=== PATIENT | male | born 1950 | race Caucasian/White ===

== ENCOUNTER 2019-12-16 15:18 | Inpatient (IN) | payer MEDICARE, BC ==
--- NOTE | 2019-12-16 15:50 | EDM.PDOC ---
ED HPI GENERAL MEDICAL PROBLEM - General Stated Complaint: FALL Time Seen by Provider: 12/16/19 15:44 Source of Information: Reports: Family History Limitations: Reports: Other (dementia) - History of Present Illness INITIAL COMMENTS - FREE TEXT/NARRATIVE: p;t comes from home with his , his is concerned for possible left lower extremity injury, pt has Hx of BKA in 2013 , has progressive dementia and lately has been experiencing near syncopal episodes when standing, today as she was assisting him in bathroom , as he stood up he fell and seems to be c/o pain at right stump , there are no other reported injuries, no LOC , pt here has stable vitals and appear comfortable. also stated concerns about her inability to care for pt at home as his condition has been progressively worsening. Lower Back Pain Score (Numeric/FACES): 3 - Related Data Allergies Allergy/AdvReac Type Severity Reaction Status Date / Time Sulfa (Sulfonamide Allergy Rash Verified 11/29/14 11:27 Antibiotics) Home Meds: Home Meds Acetaminophen 2 tab PO TID 11/24/14 [History] Carbidopa/Levodopa [Carbidopa-Levo ER 50-200] 3 tab PO TID 11/24/14 [History] Carbidopa/Levodopa [Carbidopa-Levodopa 25-100] 2.5 tab PO QID 11/24/14 [History] Cholecalciferol (Vitamin D3) [Vitamin D3] 1,000 unit PO DAILY 11/24/14 [History] Ciprofloxacin HCl [Cipro] 500 mg PO BID 11/24/14 [History] ClonazePAM [KlonoPIN] 0.5 mg PO DAILY 11/24/14 [History] Divalproex Sodium [Depakote] 250 mg PO TID 11/24/14 [History] Donepezil HCl [Aricept] 2 tab PO DAILY 11/24/14 [History] Furosemide [Lasix] 40 mg PO DAILY 11/24/14 [History] Gabapentin [Neurontin] 1.5 tab PO TID 11/24/14 [History] Meloxicam [Mobic] 7.5 mg PO DAILY 11/24/14 [History] Montelukast [Singulair] 10 mg PO BEDTIME 11/24/14 [History] Pramipexole [Mirapex] 0.5 tab PO TID 11/24/14 [History] Tamsulosin [Flomax] 0.4 mg PO DAILY 11/24/14 [History] Venlafaxine HCl [Venlafaxine ER] 2 tab PO DAILY 11/24/14 [History] metroNIDAZOLE 250 mg PO Q8H 11/24/14 [History] ED ROS GENERAL - Review of Systems Review Of Systems: Unable To Obtain Reason Not Obtained: dementia Constitutional: Denies: Fever Respiratory: Reports: No Symptoms ED EXAM, GENERAL - Physical Exam Exam: See Below Exam Limited By: Other (dementia) General Appearance: Alert, No Apparent Distress Eye Exam: Bilateral Eye: Normal Inspection Ears: Normal External Exam, Normal Canal Ear Exam: Bilateral Ear: TM normal Nose: Normal Inspection Throat/Mouth: Normal Inspection, Normal Oropharynx Head: Atraumatic, Normocephalic Neck: Normal Inspection, Supple, Non-Tender, Full Range of Motion Respiratory/Chest: No Respiratory Distress, Lungs Clear, Normal Breath Sounds Cardiovascular: Normal Peripheral Pulses, Regular Rate, Rhythm, No Murmur GI/Abdominal: Normal Bowel Sounds, Soft, Non-Tender Back Exam: Normal Inspection, Full Range of Motion Extremities: Other (bruising noted at posterior side of the right stump , no deformities, ROM at right knee is full. ) Neurological: Alert, CN II-XII Intact, Normal Reflexes, No Motor/Sensory Deficits Skin Exam: Warm Course - Vital Signs Text/Narrative:: labs and Xray results were explained to pt . pt has progressive debility / deconditioning, frequent falls, weakness and now knee pain. will admit acute / plan for placement , PT/OT. Discussed with Noelle Lewis. Last Recorded V/S: Last Vital Signs Temp 36.5 C 12/16/19 15:52 Pulse 63 12/16/19 15:52 Resp 16 12/16/19 15:52 BP 137/85 12/16/19 15:52 Pulse Ox 98 12/16/19 15:52 - Orders/Labs/Meds Orders: Active Orders 24 hr Category Date Time Status EKG Documentation Completion [RC] ASDIRECTED Care 12/16/19 15:55 Active Knee 3V Rt [CR] Stat Exams 12/16/19 16:18 Taken UA W/MICROSCOPIC [URIN] Stat Lab 12/16/19 15:54 Ordered EKG 12 Lead [EK] Routine Ther 12/16/19 15:54 Ordered Labs: Laboratory Tests 12/16/19 12/16/19 12/16/19 Range/Units 16:05 16:05 16:05 WBC 5.6 (4.5-12.0) X10-3/uL RBC 4.04 L (4.30-5.75) x10(6)uL Hgb 12.9 L (13.5-17.8) g/dL Hct 39.6 (30.0-51.3) % MCV 98.0 H (80-96) fL MCH 31.9 (27.7-33.6) pg MCHC 32.5 (32.2-35.4) g/dL RDW 12.5 (11.5-15.5) % Plt Count 142 (125-369) X10(3)uL MPV 7.4 (7.4-10.4) fL Neut % (Auto) 72.9 (46-82) % Lymph % (Auto) 18.1 (13-37) % [place] % (Auto) 7.3 (4-12) % Eos % (Auto) 1 (1.0-5.0) % Baso % (Auto) 1 (0-2) % Neut # (Auto) 4.1 (1.6-8.3) # Lymph # (Auto) 1.0 (0.6-5.0) # [place] # (Auto) 0.4 (0.0-1.3) # Eos # (Auto) 0.0 (0.0-0.8) # Baso # (Auto) 0.1 (0.0-0.2) # Sodium 142 (135-145) mmol/L Potassium 4.4 (3.5-5.3) mmol/L Chloride 104 (100-110) mmol/L Carbon Dioxide 29 (21-32) mmol/L BUN 14 (7-18) mg/dL Creatinine 1.2 (0.70-1.30) mg/dL Est Cr Clr Drug Dosing 57.79 mL/min Estimated GFR (MDRD) > 60 (>60) BUN/Creatinine Ratio 11.7 (9-20) Glucose 86 (80-116) mg/dL Calcium 8.7 (8.6-10.2) mg/dL Total Bilirubin 0.4 (0.1-1.3) mg/dL AST 11 (5-25) IU/L ALT 7 L (12-36) U/L Alkaline Phosphatase 46 L (56-112) IU/L Troponin I 5.8 (4.0-60.3) pg/mL Total Protein 6.5 (6.0-8.0) g/dL Albumin 3.4 (3.2-4.6) g/dL Globulin 3.1 g/dL Albumin/Globulin Ratio 1.1 Departure - Departure Time of Disposition: 16:58 Disposition: Admitted As Inpatient 68 Clinical Impression: General weakness - Discharge Information Referrals: Devin Stallworth MD [Primary Care Provider] - Sepsis Event Note (ED) - Focused Exam Vital Signs: Vital Signs Temp Pulse Resp BP Pulse Ox 12/16/19 15:52 36.5 C 63 16 137/85 98 - My Orders Last 24 Hours: My Active Orders 12/16/19 15:54 UA W/MICROSCOPIC [URIN] Stat EKG 12 Lead [EK] Routine 12/16/19 15:55 EKG Documentation Completion [RC] ASDIRECTED 12/16/19 16:18 Knee 3V Rt [CR] Stat - Assessment/Plan Last 24 Hours: My Active Orders 12/16/19 15:54 UA W/MICROSCOPIC [URIN] Stat EKG 12 Lead [EK] Routine 12/16/19 15:55 EKG Documentation Completion [RC] ASDIRECTED 12/16/19 16:18 Knee 3V Rt [CR] Stat
[2019-12-16] MEDS ORDERED: Acetaminophen 325 MG Tab PO PRN (16:59)
[2019-12-16] MEDS ORDERED: Acetaminophen 500 MG Tab PO PRN (18:07)
--- NOTE | 2019-12-16 18:53 | CR ---
INDICATION: Right knee pain - right BK amputation due to Staph infection in foot - fell today, prosthetic twisted. Entire posterior knee bruised and painful. Question fracture. RIGHT KNEE: Three views of the right knee were obtained revealing evidence of BK amputation. Hypertrophic degenerative changes are noted at the intercondylar notch and spines. Somewhat demineralized appearance suggests osteomalacia or osteoporosis - correlate clinically. Mild hypertrophic changes are also noted at the patellofemoral joint. The femorotibial and patellofemoral joint spaces appear to be fairly well maintained. A definite fracture, dislocation or other acute bone or joint abnormality was not identified. IMPRESSION: No acute fracture or dislocation. MTDD
[2019-12-16] MEDS ORDERED: Carbidopa/Levodopa 25-100 MG Tab PO SCH (21:00)
[2019-12-16] MEDS: Divalproex Sodium Delayed-Release 250 MG Tab.CR PO SCH (21:04)
[2019-12-16] MEDS: Gabapentin 600 MG Tab PO SCH (21:05)
[2019-12-16] MEDS: ClonazePAM 0.5 MG Tab PO SCH (21:05)
[2019-12-16] MEDS: Carbidopa/Levodopa 50-200 MG Tab.ER PO SCH (21:05)
[2019-12-16] MEDS: Tamsulosin 0.4 MG Cap.ER PO SCH (21:05)
[2019-12-16] MEDS: Memantine 10 MG Tab PO SCH (21:05)
[2019-12-17] MEDS ORDERED: Carbidopa/Levodopa 25-100 MG Tab PO SCH ×2 (06:30→15:00)
[2019-12-17] MEDS: Memantine 10 MG Tab PO SCH ×2 (08:34→20:04)
[2019-12-17] MEDS: Venlafaxine 150 MG Cap.ER PO SCH (08:34)
[2019-12-17] MEDS: Donepezil 10 MG Tab PO SCH (08:34)
[2019-12-17] MEDS: Gabapentin 600 MG Tab PO SCH ×3 (08:41→20:11)
--- NOTE | 2019-12-17 09:07 | PCM.HP.2 ---
H&P History of Present Illness - General Date of Service: 12/17/19 Admit Problem/Dx: Admission Diagnosis/Problem Admission Diagnosis/Problem Weakness Source of Information: Old Records History Limitations: Reports: Other (Difficulty speaking as a Parkinson's.) - History of Present Illness Initial Comments - Free Text/Narative: This a 69-year-old male patient with Parkinson's disease, dementia and right BKA. His is been taking care of him at home and has become more difficult. He fell yesterday and get him up so they brought to the ER. He denies fevers, chills, chest pain, shortness of breath. Does have tremors. They were worried that he hurt his right stump is he fell on it. Lower Back Pain Score (Numeric/FACES): 3 - Related Data Allergies/Adverse Reactions: Allergies Allergy/AdvReac Type Severity Reaction Status Date / Time Sulfa (Sulfonamide Allergy Rash Verified 11/29/14 11:27 Antibiotics) Home Medications: Home Meds Acetaminophen 1,000 mg PO BID PRN 11/24/14 [History] Carbidopa/Levodopa [Carbidopa-Levo ER 50-200] 1 tab PO BEDTIME 11/24/14 [History] Carbidopa/Levodopa [Carbidopa-Levodopa 25-100] 1 tab PO 5XDAY 11/24/14 [History] ClonazePAM [KlonoPIN] 0.5 mg PO BEDTIME 11/24/14 [History] Donepezil HCl [Aricept] 20 mg PO DAILY 11/24/14 [History] Gabapentin [Neurontin] 600 mg PO TID 11/24/14 [History] Tamsulosin [Flomax] 0.4 mg PO BEDTIME 11/24/14 [History] Venlafaxine HCl [Venlafaxine ER] 300 mg PO DAILY 11/24/14 [History] Cholecalciferol (Vitamin D3) [Vitamin D3] 1,000 unit PO DAILY 12/16/19 [History] Memantine [Namenda] 10 mg PO BID 12/16/19 [History] Carbidopa/Levodopa [Carbidopa-Levo ER 50-200] 1 tab PO BEDTIME PRN 12/17/19 [ History] Divalproex Sodium [Depakote ER] 500 mg PO TID@05,12,18 12/17/19 [History] Past Medical History HEENT History: Reports: Impaired Vision Cardiovascular History: Reports: Syncope Other Cardiovascular History: Orthostatis Hypotension Psychiatric History: Reports: Dementia Other Psychiatric History: Patient has Parkinsons. - Past Surgical History Musculoskeletal Surgical History: Reports: Other (See Below) Other Musculoskeletal Surgeries/Procedures:: Below the knee amputation 2014 - us ign a prosthetic. Social & Family History - Family History Family Medical History: Noncontributory - Tobacco Use Smoking Status *Q: Never Smoker Second Hand Smoke Exposure: No - Caffeine Use Caffeine Use: Reports: Soda Other Caffeine Use: sometimes - Recreational Drug Use Recreational Drug Use: No H&P Review of Systems - Review of Systems: Review Of Systems: See Below General: Reports: Weakness HEENT: Reports: No Symptoms Pulmonary: Reports: No Symptoms Cardiovascular: Reports: No Symptoms Gastrointestinal: Reports: No Symptoms Genitourinary: Reports: No Symptoms Musculoskeletal: Reports: Other (Right BK) Skin: Reports: No Symptoms Psychiatric: Reports: Other (Dementia) Neurological: Reports: No Symptoms Hematologic/Lymphatic: Reports: No Symptoms Immunologic: Reports: No Symptoms Exam - Exam Exam: See Below - Vital Signs Vital Signs: Last Vital Signs Temp 97.7 F 12/17/19 05:00 Pulse 54 L 12/17/19 05:00 Resp 16 12/17/19 05:00 BP 134/81 12/17/19 05:00 Pulse Ox 95 12/17/19 05:00 Weight: 216 lb 9.6 oz - Exam General: Alert, Cooperative, Other (Overweight) HEENT: Hearing Intact, Posterior Pharynx Clear, Pupils Equal, TMs Clear, Other (Speaks in one-word sentences.) Neck: Supple, Trachea Midline Lungs: Clear to Auscultation, Normal Respiratory Effort Cardiovascular: Regular Rate, Regular Rhythm. No: Systolic Murmur GI/Abdominal Exam: Normal Bowel Sounds, Soft, Non-Tender, No Distention Extremities: Normal Inspection, Normal Range of Motion, No Pedal Edema, Other (Right BKA. Some old bruises anterior lower thigh. His stump looks good without any pain on palpation.) Skin: Warm Neuro Extensive - Mental Status: Alert, Normal Mood/Affect Neuro Extensive - Motor, Sensory, Reflexes: Other (Tremors legs and hands) Psychiatric: Alert, Normal Mood - Patient Data Lab Results Last 24 hrs: Laboratory Results - last 24 hr 12/16/19 12/16/19 12/16/19 Range/Units 15:54 16:05 16:05 WBC 5.6 (4.5-12.0) X10-3/uL RBC 4.04 L (4.30-5.75) x10(6)uL Hgb 12.9 L (13.5-17.8) g/dL Hct 39.6 (30.0-51.3) % MCV 98.0 H (80-96) fL MCH 31.9 (27.7-33.6) pg MCHC 32.5 (32.2-35.4) g/dL RDW 12.5 (11.5-15.5) % Plt Count 142 (125-369) X10(3)uL MPV 7.4 (7.4-10.4) fL Neut % (Auto) 72.9 (46-82) % Lymph % (Auto) 18.1 (13-37) % [place] % (Auto) 7.3 (4-12) % Eos % (Auto) 1 (1.0-5.0) % Baso % (Auto) 1 (0-2) % Neut # (Auto) 4.1 (1.6-8.3) # Lymph # (Auto) 1.0 (0.6-5.0) # [place] # (Auto) 0.4 (0.0-1.3) # Eos # (Auto) 0.0 (0.0-0.8) # Baso # (Auto) 0.1 (0.0-0.2) # Sodium 142 (135-145) mmol/L Potassium 4.4 (3.5-5.3) mmol/L Chloride 104 (100-110) mmol/L Carbon Dioxide 29 (21-32) mmol/L BUN 14 (7-18) mg/dL Creatinine 1.2 (0.70-1.30) mg/dL Est Cr Clr Drug Dosing 57.79 mL/min Estimated GFR (MDRD) > 60 (>60) BUN/Creatinine Ratio 11.7 (9-20) Glucose 86 (80-116) mg/dL Calcium 8.7 (8.6-10.2) mg/dL Total Bilirubin 0.4 (0.1-1.3) mg/dL AST 11 (5-25) IU/L ALT 7 L (12-36) U/L Alkaline Phosphatase 46 L (56-112) IU/L Troponin I (4.0-60.3) pg/mL Total Protein 6.5 (6.0-8.0) g/dL Albumin 3.4 (3.2-4.6) g/dL Globulin 3.1 g/dL Albumin/Globulin Ratio 1.1 Urine Color Other (YELLOW) Urine Appearance Slightly cloudy (CLEAR) Urine pH 5.0 (5.0-6.5) Ur Specific [place] 1.025 (1.010-1.025) Urine Protein Trace (NEGATIVE) mg/dL Urine Glucose (UA) Normal (NORMAL) mg/dL Urine Ketones 15 H (NEGATIVE) mg/dL Urine Occult Blood Negative (NEGATIVE) Urine Nitrite Negative (NEGATIVE) Urine Bilirubin Negative (NEGATIVE) Urine Urobilinogen Normal (NEGATIVE) mg/dL Ur Leukocyte Esterase Negative (NEGATIVE) Urine RBC 0-5 (0-5) Urine WBC 0-5 (0-5) Ur Squamous Epith Cells Occasional (NS,R,O) Urine Bacteria Few H (NS) Urine Mucus Moderate H (NS) 12/16/19 Range/Units 16:05 WBC (4.5-12.0) X10-3/uL RBC (4.30-5.75) x10(6)uL Hgb (13.5-17.8) g/dL Hct (30.0-51.3) % MCV (80-96) fL MCH (27.7-33.6) pg MCHC (32.2-35.4) g/dL RDW (11.5-15.5) % Plt Count (125-369) X10(3)uL MPV (7.4-10.4) fL Neut % (Auto) (46-82) % Lymph % (Auto) (13-37) % [place] % (Auto) (4-12) % Eos % (Auto) (1.0-5.0) % Baso % (Auto) (0-2) % Neut # (Auto) (1.6-8.3) # Lymph # (Auto) (0.6-5.0) # [place] # (Auto) (0.0-1.3) # Eos # (Auto) (0.0-0.8) # Baso # (Auto) (0.0-0.2) # Sodium (135-145) mmol/L Potassium (3.5-5.3) mmol/L Chloride (100-110) mmol/L Carbon Dioxide (21-32) mmol/L BUN (7-18) mg/dL Creatinine (0.70-1.30) mg/dL Est Cr Clr Drug Dosing mL/min Estimated GFR (MDRD) (>60) BUN/Creatinine Ratio (9-20) Glucose (80-116) mg/dL Calcium (8.6-10.2) mg/dL Total Bilirubin (0.1-1.3) mg/dL AST (5-25) IU/L ALT (12-36) U/L Alkaline Phosphatase (56-112) IU/L Troponin I 5.8 (4.0-60.3) pg/mL Total Protein (6.0-8.0) g/dL Albumin (3.2-4.6) g/dL Globulin g/dL Albumin/Globulin Ratio Urine Color (YELLOW) Urine Appearance (CLEAR) Urine pH (5.0-6.5) Ur Specific [place] (1.010-1.025) Urine Protein (NEGATIVE) mg/dL Urine Glucose (UA) (NORMAL) mg/dL Urine Ketones (NEGATIVE) mg/dL Urine Occult Blood (NEGATIVE) Urine Nitrite (NEGATIVE) Urine Bilirubin (NEGATIVE) Urine Urobilinogen (NEGATIVE) mg/dL Ur Leukocyte Esterase (NEGATIVE) Urine RBC (0-5) Urine WBC (0-5) Ur Squamous Epith Cells (NS,R,O) Urine Bacteria (NS) Urine Mucus (NS) Result Diagrams: 12/16/19 16:05 12/16/19 16:05 Sepsis Event Note - Evaluation Sepsis Screening Result: No Definite Risk - Focused Exam Vital Signs: Vital Signs Temp Pulse Resp BP Pulse Ox 12/17/19 05:00 97.7 F 54 L 16 134/81 95 12/17/19 00:00 97.9 F 54 L 16 136/85 94 L - Problem List (1) Alzheimer's dementia SNOMED Code(s): 38052629 ICD Code: G30.9 - ALZHEIMER'S DISEASE, UNSPECIFIED; F02.80 - DEMENTIA IN OTH DISEASES CLASSD ELSWHR W/O BEHAVRL DISTURB Status: Acute Current Visit: Yes (2) Palliative care status SNOMED Code(s): 875923732 ICD Code: Z51.5 - ENCOUNTER FOR PALLIATIVE CARE Status: Acute Current Visit: Yes (3) Right BKA infection SNOMED Code(s): 258893497, 367010410 ICD Code: T87.43 - INFECTION OF AMPUTATION STUMP, RIGHT LOWER EXTREMITY Status: Acute Current Visit: Yes (4) General weakness SNOMED Code(s): 32430022 ICD Code: R53.1 - WEAKNESS Status: Acute Current Visit: Yes (5) Parkinsons disease SNOMED Code(s): 39398917 ICD Code: G20 - PARKINSON'S DISEASE Status: Acute Current Visit: Yes Problem List Initiated/Reviewed/Updated: Yes Orders Last 24hrs: Active Orders 24 hr Category Date Time Status Patient Status [ADT] Routine ADT 12/16/19 16:59 Active Pulse Oximetry [RC] PRN Care 12/16/19 16:59 Active Up With Assistance [RC] ASDIRECTED Care 12/16/19 16:59 Active Vital Signs [RC] 08,12,16,20,00,04 Care 12/16/19 16:59 Active Regular Diet [DIET] Diet 12/16/19 Dinner Active Acetaminophen [TylenoL] Med 12/16/19 16:59 Active 650 mg PO Q4H PRN Acetaminophen [Tylenol Extra Strength] Med 12/16/19 18:07 Active 1,000 mg PO BID PRN Carbidopa/Levodopa [Sinemet 25-100 mg] Med 12/17/19 06:30 Active 2.5 tab PO BID@0630,1200 Carbidopa/Levodopa [Sinemet 25-100 mg] Med 12/17/19 15:00 Active 2.5 tab PO BID@1500,1800 Carbidopa/Levodopa [Sinemet Cr 50-200 mg] Med 12/16/19 21:00 Active 1 tab PO BEDTIME ClonazePAM [KlonoPIN] Med 12/16/19 21:00 Active 0.5 mg PO BEDTIME Divalproex Sodium Med 12/16/19 21:00 Active 500 mg PO TID Donepezil [Aricept] Med 12/17/19 09:00 Active 20 mg PO DAILY Gabapentin [Neurontin] Med 12/16/19 21:00 Active 600 mg PO TID Magnesium Hydroxide [Milk of Magnesia] Med 12/16/19 16:59 Active 30 ml PO BID PRN Memantine [Namenda] Med 12/16/19 21:00 Active 10 mg PO BID Tamsulosin [Flomax] Med 12/16/19 21:00 Active 0.4 mg PO BEDTIME Venlafaxine [Effexor XR] Med 12/17/19 09:00 Active 300 mg PO DAILY Resuscitation Status Routine Resus Stat 12/16/19 18:34 Ordered EKG 12 Lead [EK] Routine Ther 12/16/19 15:54 Ordered Medication Orders Acetaminophen (Tylenol) 650 mg PO Q4H PRN PRN Reason: analgesia/fever Acetaminophen (Tylenol Extra Strength) 1,000 mg PO BID PRN PRN Reason: Pain Carbidopa/Levodopa (Sinemet Cr 50-200 Mg) 1 tab PO BEDTIME [facility] Last Admin: 12/16/19 21:05 Dose: 1 tab Documented by: ELVI Carbidopa/Levodopa (Sinemet 25-100 Mg) 2.5 tab PO BID@0630,1200 [facility] Last Admin: 12/17/19 05:37 Dose: 2.5 tab Documented by: ELVI Carbidopa/Levodopa (Sinemet 25-100 Mg) 2.5 tab PO BID@1500,1800 [facility] Clonazepam (Klonopin) 0.5 mg PO BEDTIME [facility] Last Admin: 12/16/19 21:05 Dose: 0.5 mg Documented by: ELVI Divalproex Sodium (Divalproex Sodium) 500 mg PO TID [facility] Last Admin: 12/16/19 21:04 Dose: 500 mg Documented by: ELVI Donepezil HCl (Aricept) 20 mg PO DAILY [facility] Last Admin: 12/17/19 08:34 Dose: 20 mg Documented by: KRISTIAN Gabapentin (Neurontin) 600 mg PO TID [facility] Last Admin: 12/17/19 08:41 Dose: 600 mg Documented by: Admin: 12/16/19 21:05 Dose: 600 mg Documented by: ELVI Magnesium Hydroxide (Milk Of Magnesia) 30 ml PO BID PRN PRN Reason: Constipation Memantine (Namenda) 10 mg PO BID [facility] Last Admin: 12/17/19 08:34 Dose: 10 mg Documented by: Admin: 12/16/19 21:05 Dose: 10 mg Documented by: ELVI Tamsulosin HCl (Flomax) 0.4 mg PO BEDTIME [facility] Last Admin: 12/16/19 21:05 Dose: 0.4 mg Documented by: ELVI Venlafaxine HCl (Effexor Xr) 300 mg PO DAILY [facility] Last Admin: 12/17/19 08:34 Dose: 300 mg Documented by: KRISTIAN Assessment/Plan Comment:: 1. Admit to inpatient 2. Palliative care status 3. DNR/DNI 4. Lovenox for clot prophylaxis 5. Continue home medications 6. information services manager to see 7. PT/OT - Mortality Measure Prognosis:: Poor
[2019-12-17] MEDS ORDERED: Carbidopa/Levodopa 50-200 MG Tab.ER PO PRN (09:08)
[2019-12-17] MEDS: Enoxaparin 40 MG/0.4 ML Syringe SUBCUT SCH (10:52)
[2019-12-17] MEDS: Divalproex Sodium 500 MG Tab.ER PO SCH ×2 (10:52→16:53)
[2019-12-17] MEDS: Carbidopa/Levodopa 25-100 MG Tab PO SCH ×3 (11:04→16:59)
[2019-12-17] MEDS: Divalproex Sodium Delayed-Release 250 MG Tab.CR PO SCH (11:06)
[2019-12-17] MEDS: Carbidopa/Levodopa 50-200 MG Tab.ER PO SCH (20:01)
[2019-12-17] MEDS: Tamsulosin 0.4 MG Cap.ER PO SCH (20:03)
[2019-12-17] MEDS: ClonazePAM 0.5 MG Tab PO SCH (20:11)
[2019-12-17] MEDS: Divalproex Sodium 250 MG Tab.ER PO SCH (21:46)
[2019-12-18] MEDS: Carbidopa/Levodopa 25-100 MG Tab PO SCH ×5 (04:41→18:13)
[2019-12-18] MEDS: Divalproex Sodium 250 MG Tab.ER PO SCH ×3 (04:41→18:13)
--- NOTE | 2019-12-18 08:07 | PCM.PN ---
- General Info Date of Service: 12/18/19 Admission Dx/Problem (Free Text): When asked how he is doing he said he smoked is dry mouth. Did not answer any other questions. The nurses state related to get him to the bathroom he has some syncopal episodes. The head nurse talked to the says this happens all the time when he goes the bathroom and she just sits back down and get better. They thought it may be from the Parkinson's medication according to the neurologist and told to use Gatorade with BMs before taking the medication. That has not worked. - Patient Data Vitals - Most Recent: Last Vital Signs Temp 97.6 F 12/18/19 04:50 Pulse 64 12/18/19 04:50 Resp 20 12/18/19 04:50 BP 128/82 12/18/19 04:50 Pulse Ox 95 12/18/19 04:50 Weight - Most Recent: 216 lb 9.6 oz Med Orders - Current: Current Medications Acetaminophen (Tylenol) 650 mg PO Q4H PRN PRN Reason: analgesia/fever Acetaminophen (Tylenol Extra Strength) 1,000 mg PO BID PRN PRN Reason: Pain Carbidopa/Levodopa (Sinemet Cr 50-200 Mg) 1 tab PO BEDTIME [facility] Last Admin: 12/17/19 20:01 Dose: 1 tab Documented by: Carbidopa/Levodopa (Sinemet Cr 50-200 Mg) 1 tab PO BEDTIME PRN PRN Reason: PARKINSONS Carbidopa/Levodopa (Sinemet 25-100 Mg) 1 tab PO TID@0500,0830,1200 [facility] Last Admin: 12/18/19 04:41 Dose: 1 tab Documented by: Carbidopa/Levodopa (Sinemet 25-100 Mg) 1 tab PO BID@1500,1800 [facility] Last Admin: 12/17/19 16:59 Dose: 1 tab Documented by: Clonazepam (Klonopin) 0.5 mg PO BEDTIME [facility] Last Admin: 12/17/19 20:11 Dose: 0.5 mg Documented by: Divalproex Sodium (Depakote Er) 500 mg PO TID@0500,1200,1800 [facility] Last Admin: 12/18/19 04:41 Dose: 500 mg Documented by: Donepezil HCl (Aricept) 20 mg PO DAILY [facility] Last Admin: 12/17/19 08:34 Dose: 20 mg Documented by: Enoxaparin Sodium (Lovenox) 40 mg SUBCUT Q24H [facility] Last Admin: 12/17/19 10:52 Dose: 40 mg Documented by: Gabapentin (Neurontin) 600 mg PO TID [facility] Last Admin: 12/17/19 20:11 Dose: 600 mg Documented by: Magnesium Hydroxide (Milk Of Magnesia) 30 ml PO BID PRN PRN Reason: Constipation Memantine (Namenda) 10 mg PO BID [facility] Last Admin: 12/17/19 20:04 Dose: 10 mg Documented by: Tamsulosin HCl (Flomax) 0.4 mg PO BEDTIME [facility] Last Admin: 12/17/19 20:03 Dose: 0.4 mg Documented by: Venlafaxine HCl (Effexor Xr) 300 mg PO DAILY [facility] Last Admin: 12/17/19 08:34 Dose: 300 mg Documented by: Discontinued Medications Carbidopa/Levodopa (Sinemet 25-100 Mg) 2.5 tab PO QID [facility] Carbidopa/Levodopa (Sinemet 25-100 Mg) 2.5 tab PO BID@0630,1200 [facility] Last Admin: 12/17/19 05:37 Dose: 2.5 tab Documented by: Carbidopa/Levodopa (Sinemet 25-100 Mg) 2.5 tab PO BID@1500,1800 [facility] Divalproex Sodium (Divalproex Sodium) 500 mg PO TID COUNT [facility] Last Admin: 12/17/19 11:06 Dose: Not Given Documented by: Divalproex Sodium (Depakote Er) 500 mg PO TID@0500,1200,1800 [facility] Last Admin: 12/17/19 16:53 Dose: 500 mg Documented by: - Exam General: Alert, Cooperative Lungs: Clear to Auscultation, Normal Respiratory Effort Cardiovascular: Regular Rate, Regular Rhythm, No Murmurs Sepsis Event Note - Evaluation Sepsis Screening Result: No Definite Risk - Focused Exam Vital Signs: Vital Signs Temp Pulse Resp BP Pulse Ox 12/18/19 04:50 97.6 F 64 20 128/82 95 12/18/19 00:00 18 12/17/19 22:00 98.1 F 66 20 112/71 92 L - Problem List & Annotations (1) Alzheimer's dementia SNOMED Code(s): 20996523 Code(s): G30.9 - ALZHEIMER'S DISEASE, UNSPECIFIED; F02.80 - DEMENTIA IN OTH DISEASES CLASSD ELSWHR W/O BEHAVRL DISTURB Status: Acute Current Visit: Yes (2) Palliative care status SNOMED Code(s): 374842952 Code(s): Z51.5 - ENCOUNTER FOR PALLIATIVE CARE Status: Acute Current Visit: Yes (3) Right BKA infection SNOMED Code(s): 179104611, 026889471 Code(s): T87.43 - INFECTION OF AMPUTATION STUMP, RIGHT LOWER EXTREMITY Status: Acute Current Visit: Yes (4) General weakness SNOMED Code(s): 52951677 Code(s): R53.1 - WEAKNESS Status: Acute Current Visit: Yes (5) Parkinsons disease SNOMED Code(s): 24275245 Code(s): G20 - PARKINSON'S DISEASE Status: Acute Current Visit: Yes (6) Near syncope SNOMED Code(s): 409542977 Code(s): R55 - SYNCOPE AND COLLAPSE Status: Acute Current Visit: Yes - Problem List Review Problem List Initiated/Reviewed/Updated: Yes - My Orders Last 24 Hours: My Active Orders 12/17/19 09:08 Carbidopa/Levodopa [Sinemet Cr 50-200 mg] 1 tab PO BEDTIME PRN 12/17/19 09:10 Consult to Occupational Therapy [OT Evaluation and Treatment] [CONS] Routine Consult to Physical Therapy [PT Evaluation and Treatment] [CONS] Routine 12/17/19 09:11 Consult to Case Management/Transition Coach [CONS] Routine 12/17/19 09:15 Enoxaparin [Lovenox] 40 mg SUBCUT Q24H 12/17/19 12:00 Carbidopa/Levodopa [Sinemet 25-100 mg] 1 tab PO TID@0500,0830,1200 12/17/19 15:00 Carbidopa/Levodopa [Sinemet 25-100 mg] 1 tab PO BID@1500,1800 12/17/19 21:00 Divalproex Sodium [Depakote ER] 500 mg PO TID@0500,1200,1800 - Plan Plan:: 1. Check his blood pressure of he has another episode. To hold the Flomax and see if this could be possibly causing the issue. He's not any beta blockers her blood pressure medication.
[2019-12-18] MEDS: Gabapentin 600 MG Tab PO SCH ×3 (08:36→20:09)
[2019-12-18] MEDS: Memantine 10 MG Tab PO SCH ×2 (08:36→20:08)
[2019-12-18] MEDS: Venlafaxine 150 MG Cap.ER PO SCH (08:37)
[2019-12-18] MEDS: Enoxaparin 40 MG/0.4 ML Syringe SUBCUT SCH (08:37)
[2019-12-18] MEDS: Donepezil 10 MG Tab PO SCH (08:37)
[2019-12-18] MEDS: ClonazePAM 0.5 MG Tab PO SCH (20:07)
[2019-12-18] MEDS: Carbidopa/Levodopa 50-200 MG Tab.ER PO SCH (20:09)
[2019-12-19] MEDS: Carbidopa/Levodopa 25-100 MG Tab PO SCH ×5 (05:17→17:51)
[2019-12-19] MEDS: Divalproex Sodium 250 MG Tab.ER PO SCH ×3 (05:18→17:51)
--- NOTE | 2019-12-19 07:59 | PCM.PN ---
- General Info Date of Service: 12/19/19 Admission Dx/Problem (Free Text): Patient without concerns. He doesn't really talk or answer questions - Patient Data Vitals - Most Recent: Last Vital Signs Temp 98 F 12/19/19 00:00 Pulse 62 12/19/19 00:00 Resp 18 12/19/19 00:00 BP 124/75 12/19/19 00:00 Pulse Ox 95 12/19/19 00:00 Weight - Most Recent: 216 lb 9.6 oz Med Orders - Current: Current Medications Acetaminophen (Tylenol) 650 mg PO Q4H PRN PRN Reason: analgesia/fever Acetaminophen (Tylenol Extra Strength) 1,000 mg PO BID PRN PRN Reason: Pain Carbidopa/Levodopa (Sinemet Cr 50-200 Mg) 1 tab PO BEDTIME [facility] Last Admin: 12/18/19 20:09 Dose: 1 tab Documented by: Carbidopa/Levodopa (Sinemet Cr 50-200 Mg) 1 tab PO BEDTIME PRN PRN Reason: PARKINSONS Carbidopa/Levodopa (Sinemet 25-100 Mg) 1 tab PO TID@0500,0830,1200 [facility] Last Admin: 12/19/19 05:17 Dose: 1 tab Documented by: Carbidopa/Levodopa (Sinemet 25-100 Mg) 1 tab PO BID@1500,1800 [facility] Last Admin: 12/18/19 18:13 Dose: 1 tab Documented by: Clonazepam (Klonopin) 0.5 mg PO BEDTIME [facility] Last Admin: 12/18/19 20:07 Dose: 0.5 mg Documented by: Divalproex Sodium (Depakote Er) 500 mg PO TID@0500,1200,1800 [facility] Last Admin: 12/19/19 05:18 Dose: 500 mg Documented by: Donepezil HCl (Aricept) 20 mg PO DAILY [facility] Last Admin: 12/18/19 08:37 Dose: 20 mg Documented by: Enoxaparin Sodium (Lovenox) 40 mg SUBCUT Q24H [facility] Last Admin: 12/18/19 08:37 Dose: 40 mg Documented by: Gabapentin (Neurontin) 600 mg PO TID [facility] Last Admin: 12/18/19 20:09 Dose: 600 mg Documented by: Magnesium Hydroxide (Milk Of Magnesia) 30 ml PO BID PRN PRN Reason: Constipation Memantine (Namenda) 10 mg PO BID [facility] Last Admin: 12/18/19 20:08 Dose: 10 mg Documented by: Tamsulosin HCl (Flomax) 0.4 mg PO BEDTIME [facility] Last Admin: 12/17/19 20:03 Dose: 0.4 mg Documented by: Venlafaxine HCl (Effexor Xr) 300 mg PO DAILY [facility] Last Admin: 12/18/19 08:37 Dose: 300 mg Documented by: Discontinued Medications Carbidopa/Levodopa (Sinemet 25-100 Mg) 2.5 tab PO QID [facility] Carbidopa/Levodopa (Sinemet 25-100 Mg) 2.5 tab PO BID@0630,1200 [facility] Last Admin: 12/17/19 05:37 Dose: 2.5 tab Documented by: Carbidopa/Levodopa (Sinemet 25-100 Mg) 2.5 tab PO BID@1500,1800 [facility] Divalproex Sodium (Divalproex Sodium) 500 mg PO TID [facility] Last Admin: 12/17/19 11:06 Dose: Not Given Documented by: Divalproex Sodium (Depakote Er) 500 mg PO TID@0500,1200,1800 [facility] Last Admin: 12/17/19 16:53 Dose: 500 mg Documented by: - Exam General: Alert, Cooperative Lungs: Clear to Auscultation, Normal Respiratory Effort Cardiovascular: Regular Rate, Regular Rhythm, No Murmurs Extremities: No Pedal Edema, Other (Right BKA) Sepsis Event Note - Evaluation Sepsis Screening Result: No Definite Risk - Focused Exam Vital Signs: Vital Signs Temp Pulse Resp BP Pulse Ox 12/19/19 00:00 98 F 62 18 124/75 95 - Problem List & Annotations (1) Alzheimer's dementia SNOMED Code(s): 61102835 Code(s): G30.9 - ALZHEIMER'S DISEASE, UNSPECIFIED; F02.80 - DEMENTIA IN OTH DISEASES CLASSD ELSWHR W/O BEHAVRL DISTURB Status: Acute Current Visit: Yes (2) Palliative care status SNOMED Code(s): 923193481 Code(s): Z51.5 - ENCOUNTER FOR PALLIATIVE CARE Status: Acute Current Visit: Yes (3) Right BKA infection SNOMED Code(s): 643724756, 269498861 Code(s): T87.43 - INFECTION OF AMPUTATION STUMP, RIGHT LOWER EXTREMITY Status: Acute Current Visit: Yes (4) General weakness SNOMED Code(s): 92726420 Code(s): R53.1 - WEAKNESS Status: Acute Current Visit: Yes (5) Parkinsons disease SNOMED Code(s): 99151331 Code(s): G20 - PARKINSON'S DISEASE Status: Acute Current Visit: Yes (6) Near syncope SNOMED Code(s): 539422870 Code(s): R55 - SYNCOPE AND COLLAPSE Status: Acute Current Visit: Yes - Problem List Review Problem List Initiated/Reviewed/Updated: Yes - Plan Plan:: 1. correction placement when available
[2019-12-19] MEDS: Venlafaxine 150 MG Cap.ER PO SCH (08:47)
[2019-12-19] MEDS: Donepezil 10 MG Tab PO SCH (08:47)
[2019-12-19] MEDS: Enoxaparin 40 MG/0.4 ML Syringe SUBCUT SCH (08:47)
[2019-12-19] MEDS: Gabapentin 600 MG Tab PO SCH ×3 (08:47→20:11)
[2019-12-19] MEDS: Memantine 10 MG Tab PO SCH ×2 (08:47→20:11)
[2019-12-19] MEDS: Carbidopa/Levodopa 50-200 MG Tab.ER PO SCH (20:11)
[2019-12-19] MEDS: ClonazePAM 0.5 MG Tab PO SCH (20:11)
[2019-12-20] MEDS: Carbidopa/Levodopa 25-100 MG Tab PO SCH ×5 (05:19→16:59)
[2019-12-20] MEDS: Divalproex Sodium 250 MG Tab.ER PO SCH (05:20)
--- NOTE | 2019-12-20 08:16 | PCM.PN ---
- General Info Date of Service: 12/20/19 Admission Dx/Problem (Free Text): A shouldn't has no complaints. He does not talk much or answer many questions. - Patient Data Vitals - Most Recent: Last Vital Signs Temp 98 F 12/20/19 01:00 Pulse 63 12/20/19 01:00 Resp 18 12/20/19 01:00 BP 156/80 H 12/20/19 01:00 Pulse Ox 96 12/20/19 01:00 Weight - Most Recent: 216 lb 9.6 oz Med Orders - Current: Current Medications Acetaminophen (Tylenol) 650 mg PO Q4H PRN PRN Reason: analgesia/fever Acetaminophen (Tylenol Extra Strength) 1,000 mg PO BID PRN PRN Reason: Pain Carbidopa/Levodopa (Sinemet Cr 50-200 Mg) 1 tab PO BEDTIME [facility] Last Admin: 12/19/19 20:11 Dose: 1 tab Documented by: Carbidopa/Levodopa (Sinemet Cr 50-200 Mg) 1 tab PO BEDTIME PRN PRN Reason: PARKINSONS Carbidopa/Levodopa (Sinemet 25-100 Mg) 1 tab PO TID@0500,0830,1200 [facility] Last Admin: 12/20/19 05:19 Dose: 1 tab Documented by: Carbidopa/Levodopa (Sinemet 25-100 Mg) 1 tab PO BID@1500,1800 [facility] Last Admin: 12/19/19 17:51 Dose: 1 tab Documented by: Clonazepam (Klonopin) 0.5 mg PO BEDTIME [facility] Last Admin: 12/19/19 20:11 Dose: 0.5 mg Documented by: Divalproex Sodium (Depakote Er) 500 mg PO TID@0500,1200,1800 [facility] Last Admin: 12/20/19 05:20 Dose: 500 mg Documented by: Donepezil HCl (Aricept) 20 mg PO DAILY [facility] Last Admin: 12/19/19 08:47 Dose: 20 mg Documented by: Enoxaparin Sodium (Lovenox) 40 mg SUBCUT Q24H [facility] Last Admin: 12/19/19 08:47 Dose: 40 mg Documented by: Gabapentin (Neurontin) 600 mg PO TID [facility] Last Admin: 12/19/19 20:11 Dose: 600 mg Documented by: Magnesium Hydroxide (Milk Of Magnesia) 30 ml PO BID PRN PRN Reason: Constipation Memantine (Namenda) 10 mg PO BID [facility] Last Admin: 12/19/19 20:11 Dose: 10 mg Documented by: Tamsulosin HCl (Flomax) 0.4 mg PO BEDTIME [facility] Last Admin: 12/17/19 20:03 Dose: 0.4 mg Documented by: Venlafaxine HCl (Effexor Xr) 300 mg PO DAILY [facility] Last Admin: 12/19/19 08:47 Dose: 300 mg Documented by: Discontinued Medications Carbidopa/Levodopa (Sinemet 25-100 Mg) 2.5 tab PO QID [facility] Carbidopa/Levodopa (Sinemet 25-100 Mg) 2.5 tab PO BID@0630,1200 [facility] Last Admin: 12/17/19 05:37 Dose: 2.5 tab Documented by: Carbidopa/Levodopa (Sinemet 25-100 Mg) 2.5 tab PO BID@1500,1800 [facility] Divalproex Sodium (Divalproex Sodium) 500 mg PO TID [facility] Last Admin: 12/17/19 11:06 Dose: Not Given Documented by: Divalproex Sodium (Depakote Er) 500 mg PO TID@0500,1200,1800 [facility] Last Admin: 12/17/19 16:53 Dose: 500 mg Documented by: - Exam General: Alert, Cooperative Lungs: Clear to Auscultation, Normal Respiratory Effort Cardiovascular: Regular Rate, Regular Rhythm, No Murmurs Extremities: No Pedal Edema Sepsis Event Note - Evaluation Sepsis Screening Result: No Definite Risk - Focused Exam Vital Signs: Vital Signs Temp Pulse Resp BP Pulse Ox 12/20/19 01:00 98 F 63 18 156/80 H 96 - Problem List & Annotations (1) Alzheimer's dementia SNOMED Code(s): 16923838 Code(s): G30.9 - ALZHEIMER'S DISEASE, UNSPECIFIED; F02.80 - DEMENTIA IN OTH DISEASES CLASSD ELSWHR W/O BEHAVRL DISTURB Status: Acute Current Visit: Yes (2) Palliative care status SNOMED Code(s): 115777933 Code(s): Z51.5 - ENCOUNTER FOR PALLIATIVE CARE Status: Acute Current Visit: Yes (3) Right BKA infection SNOMED Code(s): 547107087, 356433917 Code(s): T87.43 - INFECTION OF AMPUTATION STUMP, RIGHT LOWER EXTREMITY Status: Acute Current Visit: Yes (4) General weakness SNOMED Code(s): 66575672 Code(s): R53.1 - WEAKNESS Status: Acute Current Visit: Yes (5) Parkinsons disease SNOMED Code(s): 48542957 Code(s): G20 - PARKINSON'S DISEASE Status: Acute Current Visit: Yes (6) Near syncope SNOMED Code(s): 144746286 Code(s): R55 - SYNCOPE AND COLLAPSE Status: Acute Current Visit: Yes - Problem List Review Problem List Initiated/Reviewed/Updated: Yes - Plan Plan:: 1. care home placement when available
[2019-12-20] MEDS: Venlafaxine 150 MG Cap.ER PO SCH (09:38)
[2019-12-20] MEDS: Donepezil 10 MG Tab PO SCH (09:41)
[2019-12-20] MEDS: Enoxaparin 40 MG/0.4 ML Syringe SUBCUT SCH (10:24)
[2019-12-20] MEDS: Memantine 10 MG Tab PO SCH ×2 (10:24→20:30)
[2019-12-20] MEDS: Gabapentin 600 MG Tab PO SCH ×3 (10:25→20:30)
[2019-12-20] MEDS: Divalproex Sodium 500 MG Tab.ER PO SCH ×2 (12:27→16:59)
[2019-12-20] MEDS: ClonazePAM 0.5 MG Tab PO SCH (20:29)
[2019-12-20] MEDS: Carbidopa/Levodopa 50-200 MG Tab.ER PO SCH (20:30)
[2019-12-21] MEDS: Divalproex Sodium 500 MG Tab.ER PO SCH ×3 (04:08→18:21)
[2019-12-21] MEDS: Carbidopa/Levodopa 25-100 MG Tab PO SCH ×5 (04:09→18:21)
--- NOTE | 2019-12-21 08:15 | PCM.PN ---
- General Info Date of Service: 12/21/19 Admission Dx/Problem (Free Text): Patient is just waking up this morning. He has no concerns today. - Patient Data Vitals - Most Recent: Last Vital Signs Temp 98.1 F 12/21/19 01:30 Pulse 62 12/21/19 01:30 Resp 20 12/21/19 01:30 BP 135/82 12/21/19 01:30 Pulse Ox 93 L 12/21/19 01:30 Weight - Most Recent: 216 lb 9.6 oz Med Orders - Current: Current Medications Acetaminophen (Tylenol) 650 mg PO Q4H PRN PRN Reason: analgesia/fever Last Admin: 12/20/19 16:55 Dose: 650 mg Documented by: Acetaminophen (Tylenol Extra Strength) 1,000 mg PO BID PRN PRN Reason: Pain Carbidopa/Levodopa (Sinemet Cr 50-200 Mg) 1 tab PO BEDTIME [facility] Last Admin: 12/20/19 20:30 Dose: 1 tab Documented by: Carbidopa/Levodopa (Sinemet Cr 50-200 Mg) 1 tab PO BEDTIME PRN PRN Reason: PARKINSONS Carbidopa/Levodopa (Sinemet 25-100 Mg) 1 tab PO TID@0500,0830,1200 [facility] Last Admin: 12/21/19 04:09 Dose: 1 tab Documented by: Carbidopa/Levodopa (Sinemet 25-100 Mg) 1 tab PO BID@1500,1800 [facility] Last Admin: 12/20/19 16:59 Dose: 1 tab Documented by: Clonazepam (Klonopin) 0.5 mg PO BEDTIME [facility] Last Admin: 12/20/19 20:29 Dose: 0.5 mg Documented by: Divalproex Sodium (Depakote Er) 500 mg PO TID@0500,1200,1800 [facility] Last Admin: 12/21/19 04:08 Dose: 500 mg Documented by: Donepezil HCl (Aricept) 20 mg PO DAILY [facility] Last Admin: 12/20/19 09:41 Dose: 20 mg Documented by: Enoxaparin Sodium (Lovenox) 40 mg SUBCUT Q24H [facility] Last Admin: 12/20/19 10:24 Dose: 40 mg Documented by: Gabapentin (Neurontin) 600 mg PO TID [facility] Last Admin: 12/20/19 20:30 Dose: 600 mg Documented by: Magnesium Hydroxide (Milk Of Magnesia) 30 ml PO BID PRN PRN Reason: Constipation Memantine (Namenda) 10 mg PO BID [facility] Last Admin: 12/20/19 20:30 Dose: 10 mg Documented by: Tamsulosin HCl (Flomax) 0.4 mg PO BEDTIME [facility] Last Admin: 12/17/19 20:03 Dose: 0.4 mg Documented by: Venlafaxine HCl (Effexor Xr) 300 mg PO DAILY [facility] Last Admin: 12/20/19 09:38 Dose: 300 mg Documented by: Discontinued Medications Carbidopa/Levodopa (Sinemet 25-100 Mg) 2.5 tab PO QID [facility] Carbidopa/Levodopa (Sinemet 25-100 Mg) 2.5 tab PO BID@0630,1200 [facility] Last Admin: 12/17/19 05:37 Dose: 2.5 tab Documented by: Carbidopa/Levodopa (Sinemet 25-100 Mg) 2.5 tab PO BID@1500,1800 [facility] Divalproex Sodium (Divalproex Sodium) 500 mg PO TID [facility] Last Admin: 12/17/19 11:06 Dose: Not Given Documented by: Divalproex Sodium (Depakote Er) 500 mg PO TID@0500,1200,1800 [facility] Last Admin: 12/17/19 16:53 Dose: 500 mg Documented by: Divalproex Sodium (Depakote Er) 500 mg PO TID@0500,1200,1800 [facility] Last Admin: 12/20/19 05:20 Dose: 500 mg Documented by: - Exam General: Alert, Cooperative Lungs: Clear to Auscultation, Normal Respiratory Effort Cardiovascular: Regular Rate, Regular Rhythm, No Murmurs Sepsis Event Note - Evaluation Sepsis Screening Result: No Definite Risk - Focused Exam Vital Signs: Vital Signs Temp Pulse Resp BP Pulse Ox 12/21/19 01:30 98.1 F 62 20 135/82 93 L - Problem List & Annotations (1) Alzheimer's dementia SNOMED Code(s): 88634815 Code(s): G30.9 - ALZHEIMER'S DISEASE, UNSPECIFIED; F02.80 - DEMENTIA IN OTH DISEASES CLASSD ELSWHR W/O BEHAVRL DISTURB Status: Acute Current Visit: Yes (2) Palliative care status SNOMED Code(s): 853295993 Code(s): Z51.5 - ENCOUNTER FOR PALLIATIVE CARE Status: Acute Current Visit: Yes (3) General weakness SNOMED Code(s): 10833385 Code(s): R53.1 - WEAKNESS Status: Acute Current Visit: Yes (4) Parkinsons disease SNOMED Code(s): 86556486 Code(s): G20 - PARKINSON'S DISEASE Status: Acute Current Visit: Yes (5) Near syncope SNOMED Code(s): 292319490 Code(s): R55 - SYNCOPE AND COLLAPSE Status: Acute Current Visit: Yes (6) Hx of BKA SNOMED Code(s): 963492792, 287577755 Code(s): Z89.519 - ACQUIRED ABSENCE OF UNSPECIFIED LEG BELOW KNEE Status: Acute Current Visit: Yes Qualifiers: Laterality: right Qualified Code(s): Z89.511 - Acquired absence of right leg below knee - Problem List Review Problem List Initiated/Reviewed/Updated: Yes - My Orders Last 24 Hours: My Active Orders 12/20/19 12:00 Divalproex Sodium [Depakote ER] 500 mg PO TID@0500,1200,1800 - Plan Plan:: 1. long-term placement when available
[2019-12-21] MEDS: Venlafaxine 150 MG Cap.ER PO SCH (08:21)
[2019-12-21] MEDS: Donepezil 10 MG Tab PO SCH (08:21)
[2019-12-21] MEDS: Memantine 10 MG Tab PO SCH ×2 (08:22→20:10)
[2019-12-21] MEDS: Enoxaparin 40 MG/0.4 ML Syringe SUBCUT SCH (08:24)
[2019-12-21] MEDS: Gabapentin 600 MG Tab PO SCH ×3 (08:24→20:10)
[2019-12-21] MEDS: ClonazePAM 0.5 MG Tab PO SCH (20:10)
[2019-12-21] MEDS: Carbidopa/Levodopa 50-200 MG Tab.ER PO SCH (20:10)
[2019-12-22] MEDS: Divalproex Sodium 500 MG Tab.ER PO SCH ×3 (05:22→18:01)
[2019-12-22] MEDS: Carbidopa/Levodopa 25-100 MG Tab PO SCH ×5 (05:22→18:02)
--- NOTE | 2019-12-22 08:27 | PCM.PN ---
- General Info Date of Service: 12/22/19 Admission Dx/Problem (Free Text): Patient without concerns. - Patient Data Vitals - Most Recent: Last Vital Signs Temp 98.6 F 12/22/19 00:00 Pulse 63 12/22/19 00:00 Resp 18 12/22/19 00:00 BP 114/62 12/22/19 00:00 Pulse Ox 94 L 12/22/19 00:00 Weight - Most Recent: 216 lb 9.6 oz Med Orders - Current: Current Medications Acetaminophen (Tylenol) 650 mg PO Q4H PRN PRN Reason: analgesia/fever Last Admin: 12/20/19 16:55 Dose: 650 mg Documented by: Acetaminophen (Tylenol Extra Strength) 1,000 mg PO BID PRN PRN Reason: Pain Carbidopa/Levodopa (Sinemet Cr 50-200 Mg) 1 tab PO BEDTIME [facility] Last Admin: 12/21/19 20:10 Dose: 1 tab Documented by: Carbidopa/Levodopa (Sinemet Cr 50-200 Mg) 1 tab PO BEDTIME PRN PRN Reason: PARKINSONS Carbidopa/Levodopa (Sinemet 25-100 Mg) 1 tab PO TID@0500,0830,1200 [facility] Last Admin: 12/22/19 05:22 Dose: 1 tab Documented by: Carbidopa/Levodopa (Sinemet 25-100 Mg) 1 tab PO BID@1500,1800 [facility] Last Admin: 12/21/19 18:21 Dose: 1 tab Documented by: Clonazepam (Klonopin) 0.5 mg PO BEDTIME [facility] Last Admin: 12/21/19 20:10 Dose: 0.5 mg Documented by: Divalproex Sodium (Depakote Er) 500 mg PO TID@0500,1200,1800 [facility] Last Admin: 12/22/19 05:22 Dose: 500 mg Documented by: Donepezil HCl (Aricept) 20 mg PO DAILY [facility] Last Admin: 12/21/19 08:21 Dose: 20 mg Documented by: Enoxaparin Sodium (Lovenox) 40 mg SUBCUT Q24H [facility] Last Admin: 12/21/19 08:24 Dose: 40 mg Documented by: Gabapentin (Neurontin) 600 mg PO TID [facility] Last Admin: 12/21/19 20:10 Dose: 600 mg Documented by: Magnesium Hydroxide (Milk Of Magnesia) 30 ml PO BID PRN PRN Reason: Constipation Memantine (Namenda) 10 mg PO BID [facility] Last Admin: 12/21/19 20:10 Dose: 10 mg Documented by: Tuberculin PPD (Aplisol) 5 unit IDERM ONETIME ONE Stop: 12/22/19 09:01 Venlafaxine HCl (Effexor Xr) 300 mg PO DAILY [facility] Last Admin: 12/21/19 08:21 Dose: 300 mg Documented by: Discontinued Medications Carbidopa/Levodopa (Sinemet 25-100 Mg) 2.5 tab PO QID [facility] Carbidopa/Levodopa (Sinemet 25-100 Mg) 2.5 tab PO BID@0630,1200 [facility] Last Admin: 12/17/19 05:37 Dose: 2.5 tab Documented by: Carbidopa/Levodopa (Sinemet 25-100 Mg) 2.5 tab PO BID@1500,1800 [facility] Divalproex Sodium (Divalproex Sodium) 500 mg PO TID [facility] Last Admin: 12/17/19 11:06 Dose: Not Given Documented by: Divalproex Sodium (Depakote Er) 500 mg PO TID@0500,1200,1800 [facility] Last Admin: 12/17/19 16:53 Dose: 500 mg Documented by: Divalproex Sodium (Depakote Er) 500 mg PO TID@0500,1200,1800 [facility] Last Admin: 12/20/19 05:20 Dose: 500 mg Documented by: Tamsulosin HCl (Flomax) 0.4 mg PO BEDTIME [facility] Last Admin: 12/17/19 20:03 Dose: 0.4 mg Documented by: - Exam General: Alert, Cooperative Lungs: Clear to Auscultation, Normal Respiratory Effort Cardiovascular: Regular Rate, Regular Rhythm, No Murmurs Sepsis Event Note - Evaluation Sepsis Screening Result: No Definite Risk - Focused Exam Vital Signs: Vital Signs Temp Pulse Resp BP Pulse Ox 12/22/19 00:00 98.6 F 63 18 114/62 94 L - Problem List & Annotations (1) Alzheimer's dementia SNOMED Code(s): 05151876 Code(s): G30.9 - ALZHEIMER'S DISEASE, UNSPECIFIED; F02.80 - DEMENTIA IN OTH DISEASES CLASSD ELSWHR W/O BEHAVRL DISTURB Status: Acute Current Visit: Yes (2) Palliative care status SNOMED Code(s): 070639203 Code(s): Z51.5 - ENCOUNTER FOR PALLIATIVE CARE Status: Acute Current Visit: Yes (3) General weakness SNOMED Code(s): 26114026 Code(s): R53.1 - WEAKNESS Status: Acute Current Visit: Yes (4) Parkinsons disease SNOMED Code(s): 23983389 Code(s): G20 - PARKINSON'S DISEASE Status: Acute Current Visit: Yes (5) Near syncope SNOMED Code(s): 107381483 Code(s): R55 - SYNCOPE AND COLLAPSE Status: Acute Current Visit: Yes (6) Hx of BKA SNOMED Code(s): 073118617, 557232924 Code(s): Z89.519 - ACQUIRED ABSENCE OF UNSPECIFIED LEG BELOW KNEE Status: Acute Current Visit: Yes Qualifiers: Laterality: right Qualified Code(s): Z89.511 - Acquired absence of right le g below knee - Problem List Review Problem List Initiated/Reviewed/Updated: Yes - My Orders Last 24 Hours: My Active Orders 12/22/19 07:34 CORONAVIRUS COVID-19 PCR [facility] Urgent 12/22/19 09:00 Tuberculin, PPD [AplisoL] 5 unit IDERM ONETIME ONE - Plan Plan:: 1. correction placement anticipate tomorrow.
[2019-12-22] MEDS: Venlafaxine 150 MG Cap.ER PO SCH (08:47)
[2019-12-22] MEDS: Donepezil 10 MG Tab PO SCH (08:48)
[2019-12-22] MEDS: Memantine 10 MG Tab PO SCH ×2 (08:48→20:44)
[2019-12-22] MEDS: Enoxaparin 40 MG/0.4 ML Syringe SUBCUT SCH (08:49)
[2019-12-22] MEDS: Gabapentin 600 MG Tab PO SCH ×3 (08:53→20:52)
[2019-12-22] MEDS ORDERED: Tuberculin, PPD 5 Units/0.1 ML 1 ML MDV IDERM ONE (09:00)
[2019-12-22] MEDS: Carbidopa/Levodopa 50-200 MG Tab.ER PO SCH (20:45)
[2019-12-22] MEDS: ClonazePAM 0.5 MG Tab PO SCH (20:52)
[2019-12-22] MEDS: Magnesium Hydroxide 400 MG/5 ML Susp 30 ML Cup PO PRN (23:41)
[2019-12-23] MEDS: Divalproex Sodium 500 MG Tab.ER PO SCH (04:37)
[2019-12-23] MEDS: Carbidopa/Levodopa 25-100 MG Tab PO SCH ×2 (04:37→08:19)
[2019-12-23 05:28] VITALS: BP 121/81; PULSE 68
--- NOTE | 2019-12-23 08:06 | PCM.PN ---
- General Info Date of Service: 12/23/19 Admission Dx/Problem (Free Text): No concerns - Patient Data Vitals - Most Recent: Last Vital Signs Temp 97.7 F 12/23/19 05:28 Pulse 68 12/23/19 05:28 Resp 18 12/23/19 05:28 BP 121/81 12/23/19 05:28 Pulse Ox 95 12/23/19 05:28 Weight - Most Recent: 216 lb 9.6 oz Lab Results Last 24 Hours: Laboratory Results - last 24 hr 12/22/19 Range/Units 10:30 SARS-CoV-2 RNA (LUANN) Negative (NEGATIVE) Med Orders - Current: Current Medications Acetaminophen (Tylenol) 650 mg PO Q4H PRN PRN Reason: analgesia/fever Last Admin: 12/20/19 16:55 Dose: 650 mg Documented by: Acetaminophen (Tylenol Extra Strength) 1,000 mg PO BID PRN PRN Reason: Pain Carbidopa/Levodopa (Sinemet Cr 50-200 Mg) 1 tab PO BEDTIME [facility] Last Admin: 12/22/19 20:45 Dose: 1 tab Documented by: Carbidopa/Levodopa (Sinemet Cr 50-200 Mg) 1 tab PO BEDTIME PRN PRN Reason: PARKINSONS Carbidopa/Levodopa (Sinemet 25-100 Mg) 1 tab PO TID@0500,0830,1200 [facility] Last Admin: 12/23/19 04:37 Dose: 1 tab Documented by: Carbidopa/Levodopa (Sinemet 25-100 Mg) 1 tab PO BID@1500,1800 [facility] Last Admin: 12/22/19 18:02 Dose: 1 tab Documented by: Clonazepam (Klonopin) 0.5 mg PO BEDTIME [facility] Last Admin: 12/22/19 20:52 Dose: 0.5 mg Documented by: Divalproex Sodium (Depakote Er) 500 mg PO TID@0500,1200,1800 [facility] Last Admin: 12/23/19 04:37 Dose: 500 mg Documented by: Donepezil HCl (Aricept) 20 mg PO DAILY [facility] Last Admin: 12/22/19 08:48 Dose: 20 mg Documented by: Enoxaparin Sodium (Lovenox) 40 mg SUBCUT Q24H [facility] Last Admin: 12/22/19 08:49 Dose: 40 mg Documented by: Gabapentin (Neurontin) 600 mg PO TID [facility] Last Admin: 12/22/19 20:52 Dose: 600 mg Documented by: Magnesium Hydroxide (Milk Of Magnesia) 30 ml PO BID PRN PRN Reason: Constipation Last Admin: 12/22/19 23:41 Dose: 30 ml Documented by: Memantine (Namenda) 10 mg PO BID [facility] Last Admin: 12/22/19 20:44 Dose: 10 mg Documented by: Venlafaxine HCl (Effexor Xr) 300 mg PO DAILY [facility] Last Admin: 12/22/19 08:47 Dose: 300 mg Documented by: Discontinued Medications Carbidopa/Levodopa (Sinemet 25-100 Mg) 2.5 tab PO QID [facility] Carbidopa/Levodopa (Sinemet 25-100 Mg) 2.5 tab PO BID@0630,1200 [facility] Last Admin: 12/17/19 05:37 Dose: 2.5 tab Documented by: Carbidopa/Levodopa (Sinemet 25-100 Mg) 2.5 tab PO BID@1500,1800 [facility] Divalproex Sodium (Divalproex Sodium) 500 mg PO TID [facility] Last Admin: 12/17/19 11:06 Dose: Not Given Documented by: Divalproex Sodium (Depakote Er) 500 mg PO TID@0500,1200,1800 [facility] Last Admin: 12/17/19 16:53 Dose: 500 mg Documented by: Divalproex Sodium (Depakote Er) 500 mg PO TID@0500,1200,1800 [facility] Last Admin: 12/20/19 05:20 Dose: 500 mg Documented by: Tamsulosin HCl (Flomax) 0.4 mg PO BEDTIME [facility] Last Admin: 12/17/19 20:03 Dose: 0.4 mg Documented by: Tuberculin PPD (Aplisol) 5 unit IDERM ONETIME ONE Stop: 12/22/19 09:01 Last Admin: 12/22/19 08:59 Dose: 5 unit Documented by: - Exam Cardiovascular: Regular Rate, Regular Rhythm, No Murmurs Sepsis Event Note - Evaluation Sepsis Screening Result: No Definite Risk - Focused Exam Vital Signs: Vital Signs Temp Pulse Resp BP Pulse Ox 12/23/19 05:28 97.7 F 68 18 121/81 95 12/23/19 00:00 97.1 F 66 18 122/72 94 L - Problem List & Annotations (1) Alzheimer's dementia SNOMED Code(s): 01099958 Code(s): G30.9 - ALZHEIMER'S DISEASE, UNSPECIFIED; F02.80 - DEMENTIA IN OTH DISEASES CLASSD ELSWHR W/O BEHAVRL DISTURB Status: Acute Current Visit: Yes (2) Palliative care status SNOMED Code(s): 052155717 Code(s): Z51.5 - ENCOUNTER FOR PALLIATIVE CARE Status: Acute Current Visit: Yes (3) General weakness SNOMED Code(s): 97804198 Code(s): R53.1 - WEAKNESS Status: Acute Current Visit: Yes (4) Parkinsons disease SNOMED Code(s): 08851410 Code(s): G20 - PARKINSON'S DISEASE Status: Acute Current Visit: Yes (5) Near syncope SNOMED Code(s): 791704372 Code(s): R55 - SYNCOPE AND COLLAPSE Status: Acute Current Visit: Yes (6) Hx of BKA SNOMED Code(s): 084149886, 058954261 Code(s): Z89.519 - ACQUIRED ABSENCE OF UNSPECIFIED LEG BELOW KNEE Status: Acute Current Visit: Yes Qualifiers: Laterality: right Qualified Code(s): Z89.511 - Acquired absence of right leg below knee - Problem List Review Problem List Initiated/Reviewed/Updated: Yes - Plan Plan:: 1. long-term placement
--- NOTE | 2019-12-23 08:11 | PCM.DCSUM1 ---
Discharge Summary - Hospital Course Free Text/Narrative:: Hospital course-patient was admitted and PT/OT evaluation. He had an episode where he was near syncope when he went to the bathroom. The staff talk to the and that have been going on that's why he was doing all the falling. The stated that neurology told her to use some Gatorade before elective Shreya try to increase his fluids. I notice he was on Flomax we stopped the Flomax and that improved. His urination was okay but needs to be watched. Other that he did well while he is here. cannot take care of him so we'll transfer to long-term. Brief History: This a 69-year-old male patient with Parkinson's disease, dementia and right BKA. His is been taking care of him at home and has become more difficult. He fell yesterday and get him up so they brought to the ER. He denies fevers, chills, chest pain, shortness of breath. Does have tremors. They were worried that he hurt his right stump is he fell on it. Diagnosis: Stroke: No - Discharge Data Discharge Date: 12/23/19 Discharge Disposition: DC/Tfer to [facility] Condition: Good - Referral to Home Health Primary Care Physician: Devin Stallworth MD - Discharge Diagnosis/Problem(s) (1) Alzheimer's dementia SNOMED Code(s): 04065980 ICD Code: G30.9 - ALZHEIMER'S DISEASE, UNSPECIFIED; F02.80 - DEMENTIA IN OTH DISEASES CLASSD ELSWHR W/O BEHAVRL DISTURB Status: Acute Current Visit: Yes (2) Palliative care status SNOMED Code(s): 689495957 ICD Code: Z51.5 - ENCOUNTER FOR PALLIATIVE CARE Status: Acute Current Visit: Yes (3) General weakness SNOMED Code(s): 95588661 ICD Code: R53.1 - WEAKNESS Status: Acute Current Visit: Yes (4) Parkinsons disease SNOMED Code(s): 89625577 ICD Code: G20 - PARKINSON'S DISEASE Status: Acute Current Visit: Yes (5) Near syncope SNOMED Code(s): 211197715 ICD Code: R55 - SYNCOPE AND COLLAPSE Status: Acute Current Visit: Yes (6) Hx of BKA SNOMED Code(s): 778578971, 840629291 ICD Code: Z89.519 - ACQUIRED ABSENCE OF UNSPECIFIED LEG BELOW KNEE Status: Acute Current Visit: Yes Qualifiers: Laterality: right Qualified Code(s): Z89.511 - Acquired absence of right leg below knee - Patient Summary/Data Consults: Consultations 12/17/19 09:10 Consult to Occupational Therapy [OT Evaluation and Treatment] [CONS] Routine Please Evaluate and Treat. OT Reason for Consult: Strengthening This query below is only for informational purposes and is not editable. Admission Diagnosis/Problem: Weakness Consult to Physical Therapy [PT Evaluation and Treatment] [CONS] Routine Please Evaluate and Treat. PT Reason for Consult: Strengthening This query below is only for informational purposes and is not editable. Admission Diagnosis/Problem: Weakness 12/17/19 09:11 Consult to Case Management/[facility] [CONS] Routine Comment: Physician Instructions: Service(s) to be Consulted: [facility] - Patient Instructions Diet: Regular Diet as Tolerated Activity: As Tolerated Driving: Do Not Drive Showering/Bathing: May Shower Other/Special Instructions: 1. Transfer to [facility]. 2. PT/OT evaluation. - Discharge Plan Home Medications: Home Meds Acetaminophen 1,000 mg PO BID PRN 11/24/14 [History] Carbidopa/Levodopa [Carbidopa-Levo ER 50-200] 1 tab PO BEDTIME 11/24/14 [History] Carbidopa/Levodopa [Carbidopa-Levodopa 25-100] 1 tab PO 5XDAY 11/24/14 [History] ClonazePAM [KlonoPIN] 0.5 mg PO BEDTIME 11/24/14 [History] Donepezil HCl [Aricept] 20 mg PO DAILY 11/24/14 [History] Gabapentin [Neurontin] 600 mg PO TID 11/24/14 [History] Venlafaxine HCl [Venlafaxine ER] 300 mg PO DAILY 11/24/14 [History] Cholecalciferol (Vitamin D3) [Vitamin D3] 1,000 unit PO DAILY 12/16/19 [History] Memantine [Namenda] 10 mg PO BID 12/16/19 [History] Carbidopa/Levodopa [Carbidopa-Levo ER 50-200] 1 tab PO BEDTIME PRN 12/17/19 [History] Divalproex Sodium [Depakote ER] 500 mg PO TID@05,12,18 12/17/19 [History] Carbidopa/Levodopa [Carbidopa-Levodopa 25-100] 1 tab PO BID@1500,1800 tablet 12/23/19 [Rx] Carbidopa/Levodopa [Carbidopa-Levodopa 25-100] 1 tab PO TID@0500,0830,1200 tablet 12/23/19 [Rx] Patient Handouts: Venous Thromboembolism Prevention Forms: ED Department Discharge Referrals: Devin Stallworth MD [Primary Care Provider] - - Discharge Summary/Plan Comment DC Time >30 min.: No - Patient Data Vitals - Most Recent: Last Vital Signs Temp 97.7 F 12/23/19 05:28 Pulse 68 12/23/19 05:28 Resp 18 12/23/19 05:28 BP 121/81 12/23/19 05:28 Pulse Ox 95 12/23/19 05:28 Weight - Most Recent: 216 lb 9.6 oz Lab Results - Last 24 hrs: Laboratory Results - last 24 hr 12/22/19 Range/Units 10:30 SARS-CoV-2 RNA (LUANN) Negative (NEGATIVE) Med Orders - Current: Current Medications Acetaminophen (Tylenol) 650 mg PO Q4H PRN PRN Reason: analgesia/fever Last Admin: 12/20/19 16:55 Dose: 650 mg Documented by: Acetaminophen (Tylenol Extra Strength) 1,000 mg PO BID PRN PRN Reason: Pain Carbidopa/Levodopa (Sinemet Cr 50-200 Mg) 1 tab PO BEDTIME [facility] Last Admin: 12/22/19 20:45 Dose: 1 tab Documented by: Carbidopa/Levodopa (Sinemet Cr 50-200 Mg) 1 tab PO BEDTIME PRN PRN Reason: PARKINSONS Carbidopa/Levodopa (Sinemet 25-100 Mg) 1 tab PO TID@0500,0830,1200 [facility] Last Admin: 12/23/19 04:37 Dose: 1 tab Documented by: Carbidopa/Levodopa (Sinemet 25-100 Mg) 1 tab PO BID@1500,1800 [facility] Last Admin: 12/22/19 18:02 Dose: 1 tab Documented by: Clonazepam (Klonopin) 0.5 mg PO BEDTIME [facility] Last Admin: 12/22/19 20:52 Dose: 0.5 mg Documented by: Divalproex Sodium (Depakote Er) 500 mg PO TID@0500,1200,1800 [facility] Last Admin: 12/23/19 04:37 Dose: 500 mg Documented by: Donepezil HCl (Aricept) 20 mg PO DAILY [facility] Last Admin: 12/22/19 08:48 Dose: 20 mg Documented by: Enoxaparin Sodium (Lovenox) 40 mg SUBCUT Q24H [facility] Last Admin: 12/22/19 08:49 Dose: 40 mg Documented by: Gabapentin (Neurontin) 600 mg PO TID [facility] Last Admin: 12/22/19 20:52 Dose: 600 mg Documented by: Magnesium Hydroxide (Milk Of Magnesia) 30 ml PO BID PRN PRN Reason: Constipation Last Admin: 12/22/19 23:41 Dose: 30 ml Documented by: Memantine (Namenda) 10 mg PO BID [facility] Last Admin: 12/22/19 20:44 Dose: 10 mg Documented by: Venlafaxine HCl (Effexor Xr) 300 mg PO DAILY [facility] Last Admin: 12/22/19 08:47 Dose: 300 mg Documented by: Discontinued Medications Carbidopa/Levodopa (Sinemet 25-100 Mg) 2.5 tab PO QID [facility] Carbidopa/Levodopa (Sinemet 25-100 Mg) 2.5 tab PO BID@0630,1200 [facility] Last Admin: 12/17/19 05:37 Dose: 2.5 tab Documented by: Carbidopa/Levodopa (Sinemet 25-100 Mg) 2.5 tab PO BID@1500,1800 [facility] Divalproex Sodium (Divalproex Sodium) 500 mg PO TID [facility] Last Admin: 12/17/19 11:06 Dose: Not Given Documented by: Divalproex Sodium (Depakote Er) 500 mg PO TID@0500,1200,1800 [facility] Last Admin: 12/17/19 16:53 Dose: 500 mg Documented by: Divalproex Sodium (Depakote Er) 500 mg PO TID@0500,1200,1800 [facility] Last Admin: 12/20/19 05:20 Dose: 500 mg Documented by: Tamsulosin HCl (Flomax) 0.4 mg PO BEDTIME [facility] Last Admin: 12/17/19 20:03 Dose: 0.4 mg Documented by: Tuberculin PPD (Aplisol) 5 unit IDERM ONETIME ONE Stop: 12/22/19 09:01 Last Admin: 12/22/19 08:59 Dose: 5 unit Documented by:
[2019-12-23] MEDS: Enoxaparin 40 MG/0.4 ML Syringe SUBCUT SCH (08:17)
[2019-12-23] MEDS: Donepezil 10 MG Tab PO SCH (08:19)
[2019-12-23] MEDS: Gabapentin 600 MG Tab PO SCH (08:19)
[2019-12-23] MEDS: Magnesium Hydroxide 400 MG/5 ML Susp 30 ML Cup PO PRN (08:19)
[2019-12-23] MEDS: Venlafaxine 150 MG Cap.ER PO SCH (08:19)
[2019-12-23] MEDS: Memantine 10 MG Tab PO SCH (08:20)
== END 2019-12-23 10:35 | DRG 948 ==
LOC: FB.ED 15:18 → FB.MS 16:59
PROVIDERS: ADMIT Family Medicine; ATTEND Family Medicine
DX: R53.1 Weakness (principal); M25.561 Pain in right knee; W19.XXXA Unspecified fall, initial encounter; R29.6 Repeated falls; G30.9 Alzheimer's disease, unspecified; R55 Syncope and collapse; F03.90 Unspecified dementia, unspecified severity, without behavioral disturbance, psychotic disturbance, mood disturbance, and anxiety; F02.80 Dementia in other diseases classified elsewhere, unspecified severity, without behavioral disturbance, psychotic disturbance, mood disturbance, and anxiety; Z51.5 Encounter for palliative care; G20 Parkinson's disease; Z66 Do not resuscitate; Z20.828 Contact with and (suspected) exposure to other viral communicable diseases; H54.7 Unspecified visual loss; I95.1 Orthostatic hypotension; Z89.511 Acquired absence of right leg below knee; Z88.2 Allergy status to sulfonamides; Z79.899 Other long term (current) drug therapy
CPT/HCPCS: 36415; 73562-RT; 80053; 81001; 84484; 85025; 86580; 93005; 97116-GP; 97161-GP; 97165-GO; 97530-GO; 97530-GP; 97535-GO; 97542-GO; 99221; 99231; 99238; 99283; 99285-25; A9270-GY; J1650; U0002

== ENCOUNTER 2021-01-25 12:47 | Emergency (ER) | payer MEDICARE, BC ==
[2021-01-25] MEDS ORDERED: Sodium Chloride 0.9% 10 ML Syringe FLUSH PRN (13:01)
[2021-01-25 13:26] VITALS: BP 118/67; PULSE 69
--- NOTE | 2021-01-25 13:40 | EDM.PDOC ---
ED HPI GENERAL MEDICAL PROBLEM - General Chief Complaint: General Stated Complaint: HIGH POTASSIUM Time Seen by Provider: 01/25/21 12:55 Source of Information: Reports: Patient, Family History Limitations: Reports: No Limitations - History of Present Illness INITIAL COMMENTS - FREE TEXT/NARRATIVE: Patient was send to the ED from the [facility] because of an elevated K of 7. There is no palpitations or chest pain. He is otherwise asymptomatic. - Related Data Allergies Allergy/AdvReac Type Severity Reaction Status Date / Time Sulfa (Sulfonamide Allergy Rash Verified 11/29/14 11:27 Antibiotics) Home Meds: Home Meds Acetaminophen 1,000 mg PO BID PRN 11/24/14 [History] Carbidopa/Levodopa [Carbidopa-Levo ER 50-200] 1 tab PO BEDTIME 11/24/14 [History] Carbidopa/Levodopa [Carbidopa-Levodopa 25-100] 1 tab PO 5XDAY 11/24/14 [History] ClonazePAM [KlonoPIN] 0.5 mg PO BEDTIME 11/24/14 [History] Donepezil HCl [Aricept] 20 mg PO DAILY 11/24/14 [History] Gabapentin [Neurontin] 600 mg PO TID 11/24/14 [History] Venlafaxine HCl [Venlafaxine ER] 300 mg PO DAILY 11/24/14 [History] Cholecalciferol (Vitamin D3) [Vitamin D3] 1,000 unit PO DAILY 12/16/19 [History] Memantine [Namenda] 10 mg PO BID 12/16/19 [History] Carbidopa/Levodopa [Carbidopa-Levo ER 50-200] 1 tab PO BEDTIME PRN 12/17/19 [History] Divalproex Sodium [Depakote ER] 500 mg PO TID@05,12,18 12/17/19 [History] Past Medical History HEENT History: Reports: Impaired Vision Cardiovascular History: Reports: Syncope Other Cardiovascular History: Orthostatis Hypotension Psychiatric History: Reports: Dementia Other Psychiatric History: Patient has Parkinsons. - Past Surgical History Musculoskeletal Surgical History: Reports: Other (See Below) Other Musculoskeletal Surgeries/Procedures:: Below the knee amputation 2013 - usign a prosthetic. Social & Family History - Family History Family Medical History: No Pertinent Family History - Tobacco Use Tobacco Use Status *Q: Never Tobacco User Second Hand Smoke Exposure: No - Caffeine Use Caffeine Use: Reports: Coffee Other Caffeine Use: sometimes - Recreational Drug Use Recreational Drug Use: No ED ROS GENERAL - Review of Systems Review Of Systems: See Below Constitutional: Reports: No Symptoms HEENT: Reports: No Symptoms Respiratory: Reports: No Symptoms Cardiovascular: Reports: No Symptoms Endocrine: Reports: No Symptoms GI/Abdominal: Reports: No Symptoms : Reports: No Symptoms Musculoskeletal: Reports: No Symptoms Skin: Reports: No Symptoms Neurological: Reports: No Symptoms Psychiatric: Reports: No Symptoms ED EXAM, GENERAL - Physical Exam Exam: See Below Exam Limited By: No Limitations General Appearance: Alert, No Apparent Distress Eye Exam: Bilateral Eye: PERRL Ears: Normal External Exam, Normal Canal Nose: Normal Inspection, Normal Mucosa, No Blood Throat/Mouth: Normal Inspection, Normal Lips, Normal Teeth Head: Atraumatic, Normocephalic Neck: Normal Inspection, Supple, Non-Tender Respiratory/Chest: No Respiratory Distress, Lungs Clear, Normal Breath Sounds, No Accessory Muscle Use, Chest Non-Tender Cardiovascular: Normal Peripheral Pulses, Regular Rate, Rhythm, No Edema, No JVD, No Murmur GI/Abdominal: Normal Bowel Sounds, Soft, Non-Tender, No Distention, No Abnormal Bruit Extremities: Normal Inspection, Normal Range of Motion Neurological: Alert, Oriented, CN II-XII Intact Psychiatric: Normal Affect Skin Exam: Warm Course - Vital Signs Text/Narrative:: repeat BMP-normal Last Recorded V/S: Last Vital Signs Temp 36.2 C 01/25/21 12:47 Pulse 69 01/25/21 12:47 Resp 16 01/25/21 12:47 BP 118/67 01/25/21 12:47 Pulse Ox 98 01/25/21 12:47 - Orders/Labs/Meds Orders: Active Orders 24 hr Category Date Time Status BASIC METABOLIC PANEL,BMP [CHEM] Stat Lab 01/25/21 13:29 Ordered Sodium Chloride 0.9% [Saline Flush] Med 01/25/21 13:01 Active 10 ml FLUSH ASDIRECTED PRN Peripheral IV Insertion Adult [OM.PC] Routine Oth 01/25/21 13:01 Ordered Medication Orders Sodium Chloride (Sodium Chloride 0.9% 10 Ml Syringe) 10 ml FLUSH ASDIRECTED PRN PRN Reason: Keep Vein Open Meds: Medications Generic Name Dose Route Start Last Admin Trade Name Freq PRN Reason Stop Dose Admin Sodium Chloride 10 ml 01/25/21 13:01 Sodium Chloride 0.9% 10 Ml Syringe FLUSH ASDIRECTED PRN Keep Vein Open Departure - Departure Time of Disposition: 13:45 Disposition: DC/Tfer to [facility] Condition: Good Clinical Impression: Hyperkalemia - Discharge Information Instructions: Hyperkalemia, [id number] Referrals: Devin Stallworth MD [Primary Care Provider] - Additional Instructions: Your repeat potassium is 4.4 which is normal Follow up as needed Sepsis Event Note (ED) - Evaluation Sepsis Screening Result: No Definite Risk - Focused Exam Vital Signs: Vital Signs Temp Pulse Resp BP Pulse Ox 01/25/21 12:47 36.2 C 69 16 118/67 98 - My Orders Last 24 Hours: My Active Orders 01/25/21 13:01 Sodium Chloride 0.9% [Saline Flush] 10 ml FLUSH ASDIRECTED PRN Peripheral IV Insertion Adult [OM.PC] Routine 01/25/21 13:29 BASIC METABOLIC PANEL,BMP [CHEM] Stat - Assessment/Plan Last 24 Hours: My Active Orders 01/25/21 13:01 Sodium Chloride 0.9% [Saline Flush] 10 ml FLUSH ASDIRECTED PRN Peripheral IV Insertion Adult [OM.PC] Routine 01/25/21 13:29 BASIC METABOLIC PANEL,BMP [CHEM] Stat
== END 2021-01-25 13:50 ==
LOC: FB.ED 12:47
DX: E87.5 Hyperkalemia (principal); G20 Parkinson's disease; F02.80 Dementia in other diseases classified elsewhere, unspecified severity, without behavioral disturbance, psychotic disturbance, mood disturbance, and anxiety; Z88.2 Allergy status to sulfonamides; Z79.899 Other long term (current) drug therapy
CPT/HCPCS: 36415; 80048; 99284